=== PATIENT | male | born 1975 | race Hispanic/Latino ===

== ENCOUNTER 2018-01-17 19:31 | Emergency (ER) | payer OTHER ==
[2018-01-17 19:58] VITALS: TEMP 98.5
--- NOTE | 2018-01-17 20:04 | ED PDOC ---
Arrival/HPI - General Time Seen by Provider: 01/17/18 19:47 Historian: Patient - History of Present Illness Narrative History of Present Illness (Text): 01/17/18 19:51 42yo male with no PMhx who present with complaint of dog bite to right Daniel hand this evening. states he was bitten by his dog, when he tried to break up his dogs fight. He notes that the dog is vaccinated. The patient is not up to date with his TD booster. He denies any other complaint. Past Medical History - Provider Review Nursing Documentation Reviewed: Yes Family/Social History - Physician Review Nursing Documentation Reviewed: Yes Family/Social History: Unknown Family HX Allergies/Home Meds Allergies/Adverse Reactions: Allergies No Known Allergies Allergy (Verified 01/17/18 20:02) Home Medications: Home Meds Medication Instructions Recorded Confirmed buPROPion [Wellbutrin] 450 mg PO DAILY 01/17/18 01/17/18 Review of Systems - Physician Review All systems were reviewed & negative as marked: Yes - Review of Systems Constitutional: Normal Eyes: Normal ENT: Normal Respiratory: Normal Cardiovascular: Normal Gastrointestinal: Normal Genitourinary Male: Normal Musculoskeletal: Normal Skin: Other (Dog bite to right palm) Neurological: Normal Endocrine: Normal Hemo/Lymphatic: Normal Psychiatric: Normal Physical Exam Vital Signs Reviewed: Yes Vital Signs Temp Pulse Resp BP Pulse Ox 01/17/18 19:32 98.5 F 94 H 17 130/84 98 Temperature: Afebrile Blood Pressure: Normal Pulse: Regular Respiratory Rate: Normal Appearance: Positive for: Well-Appearing, Non-Toxic, Comfortable Pain Distress: None Mental Status: Positive for: Alert and Oriented X 3 - Systems Exam Head: Present: Atraumatic, Normocephalic Pupils: Present: PERRL Extroacular Muscles: Present: EOMI Conjunctiva: Present: Normal Mouth: Present: Moist Mucous Membranes Neck: Present: Normal Range of Motion Respiratory/Chest: Present: Clear to Auscultation, Good Air Exchange. No: Respiratory Distress, Accessory Muscle Use Cardiovascular: Present: Regular Rate and Rhythm, Normal S1, S2. No: Murmurs Abdomen: No: Tenderness, Distention, Peritoneal Signs Back: Present: Normal Inspection Upper Extremity: Present: Normal Inspection. No: Cyanosis, Edema Lower Extremity: Present: Normal Inspection. No: Edema Neurological: Present: GCS=15, CN II-XII Intact, Speech Normal Skin: Present: Warm, Dry, Normal Color, Laceration (2.0cm linear laceration to right thenar prominence of right palm). No: Rashes Psychiatric: Present: Alert, Oriented x 3, Normal Insight, Normal Concentration Medical Decision Making ED Course and Treatment: 01/17/18 20:21 Right hand laceration from a dog bite. Pressure irrigation of wound done. Bacitracine applied and dressed. Suture was not applied, hence is not indicated for dog bite. Wound expected to heal by secondary healing. Pt placed on prophylactic abx. Advised to follow up with his PMD or return to ED in 2days for wound check. - Medication Orders Current Medication Orders: Discontinued Medications Amoxicillin/Clavulanate Potassium (Augmentin 875 Mg-125 Mg Tab) 1 tab PO STAT STA PRN Reason: Protocol Stop: 01/17/18 20:06 Last Admin: 01/17/18 20:19 Dose: 1 tab Tetanus/Reduced Diphtheria/Acell Pertussis (Boostrix Vaccine Inj) 0.5 ml IM .ONCE ONE Stop: 01/17/18 20:06 Last Admin: 01/17/18 20:20 Dose: 0.5 ml Immunization Registry Document 01/17/18 20:20 AD (Rec: 01/17/18 20:20 [place] [facility] [id number] Immunization Registry Consent Date 01/17/18 Tramadol HCl (Ultram) 50 mg PO STAT STA Stop: 01/17/18 20:07 Last Admin: 01/17/18 20:19 Dose: 50 mg MAR Pain Assessment Document 01/17/18 20:19 AD (Rec: 01/17/18 20:19 AD [facility] [id number] Pain Reassessment Is this a pain reassessment? No Presence of Pain Presence of Pain Yes Pain Scale Used Pain Scale Used Numeric Location Left, Right or Bilateral Right Description Intensity of Pain at present 8 Disposition/Present on Arrival - Present on Arrival Any Indicators Present on Arrival: No History of DVT/PE: No History of Uncontrolled Diabetes: No Urinary Catheter: No History of Decub. Ulcer: No History Surgical Site Infection Following: None - Disposition Have Diagnosis and Disposition been Completed?: Yes Diagnosis: Dog bite Disposition: HOME/ ROUTINE Disposition Time: 20:25 Patient Plan: Discharge Patient Problems: Current Active Problems Problem Status Onset Dog bite Acute Condition: STABLE Discharge Instructions (ExitCare): Animal Bites (DC) Additional Instructions: Take medication as directed Keep wound clean and dry Follow up with your Doctor Return to ED in 2days for wound check Prescriptions: Amoxicillin/Clavulanate [Augmentin 875 MG-125 MG] 1 tab PO BID #20 tab traMADol [Ultram] 50 mg PO TID #9 tab Referrals: Darrell Wall, [Primary Care Provider] - [place] up with primary [facility] [place] - Follow up with primary
[2018-01-17] MEDS ORDERED: TDAP Vaccine 0.5 mL Syr IM ONE (20:05)
[2018-01-17] MEDS ORDERED: Amoxicillin-Clav 875-125 mg Tab PO STA (20:05)
[2018-01-17 20:35] VITALS: BP 128/82; PULSE 88; RESP 18; O2SAT 100
== END 2018-01-17 20:33 | disposition home or self-care (01) ==
LOC: ED 19:31
DX: S61.451A Open bite of right hand, initial encounter (principal); W54.0XXA Bitten by dog, initial encounter; Z23 Encounter for immunization

== ENCOUNTER 2018-01-20 16:35 | Emergency (ER) | payer OTHER ==
[2018-01-20] MEDS ORDERED: RABIES VACCINE 2.5 Units PDR IM ONE ×2 (16:52→17:00)
--- NOTE | 2018-01-20 17:04 | ED PDOC ---
Arrival/HPI - General Chief Complaint: Wound Check Time Seen by Provider: 01/20/18 16:51 Historian: Patient - History of Present Illness Narrative History of Present Illness (Text): 01/20/18 17:04 42yr old male presents today for wound check to right hand. pt states on 01/17 the patient's got bit by his own dog. Patient states his dog is up-to-date on immunizations. Patient states he was seen in the emergency room and was given Augmentin. Patient states he is taking the antibiotic as prescribed. He denies fevers or chills. He denies numbness weakness or tingling in the extremities. Patient states the pain in the hand has improved drastically. Patient denies limited range of motion of the hand or fingers. No other complaints Symptom Course: Improving Past Medical History - Provider Review Nursing Documentation Reviewed: Yes - Travel History Have you recently traveled outside [place] w/in the past 3 mons?: No - Infectious Disease Hx of Infectious Diseases: None - Tetanus Immunization Tetanus Immunization: Up to Date - Cardiac Hx Cardiac Disorders: No - Pulmonary Hx Respiratory Disorders: No - Neurological Hx Neurological Disorder: No - HEENT Hx HEENT Disorder: No - Renal Hx Renal Disorder: No - Endocrine/Metabolic Hx Endocrine Disorders: No - Hematological/Oncological Hx Blood Disorders: No - Integumentary Hx Dermatological Disorder: No - Musculoskeletal/Rheumatological Hx Musculoskeletal Disorders: No - Gastrointestinal Hx Gastrointestinal Disorders: No - Genitourinary/Gynecological Hx Genitourinary Disorders: No - Psychiatric Hx Psychophysiologic Disorder: Yes Hx Depression: Yes Hx Substance Use: No - Surgical History Hx Eye Surgery: Yes Hx Orthopedic Surgery: Yes (left shoulder) - Anesthesia Hx Anesthesia: Yes Hx Anesthesia Reactions: No Family/Social History - Physician Review Nursing Documentation Reviewed: Yes Family/Social History: Unknown Family HX Smoking Status: Never Smoked Hx Alcohol Use: Yes Frequency of alcohol use: Socially Hx Substance Use: No Allergies/Home Meds Allergies/Adverse Reactions: Allergies No Known Allergies Allergy (Verified 01/20/18 16:51) Home Medications: Home Meds Medication Instructions Recorded Confirmed buPROPion [Wellbutrin] 400 mg PO DAILY 01/17/18 01/17/18 Review of Systems - Review of Systems Constitutional: absent: Fatigue, Fevers Respiratory: absent: SOB, Cough Cardiovascular: absent: Chest Pain, Palpitations Gastrointestinal: absent: Abdominal Pain, Nausea, Vomiting Musculoskeletal: absent: Back Pain, Neck Pain Skin: Laceration Neurological: absent: Headache, Dizziness Psychiatric: absent: Anxiety, Depression Physical Exam Vital Signs Reviewed: Yes Vital Signs Temp Pulse Resp BP Pulse Ox 01/20/18 16:49 98.8 F 92 H 18 114/80 97 Temperature: Afebrile Blood Pressure: Normal Pulse: Regular Respiratory Rate: Normal Appearance: Positive for: Well-Appearing, Non-Toxic, Comfortable Pain Distress: None Mental Status: Positive for: Alert and Oriented X 3 - Systems Exam Head: Present: Atraumatic Respiratory/Chest: Present: Clear to Auscultation Cardiovascular: Present: Regular Rate and Rhythm Upper Extremity: Present: Normal ROM, NORMAL PULSES, Neurovascularly Intact, Capillary Refill < 2s, Other (right hand; there is a 3cm healing laceration to palm over thenar eminence. no surrounding erythema; no edema, no edema, no tenderness. full rom of hand. sensation and distal pulses intact cap refill <2. ). No: Tenderness, Swelling, Erythema, Deformity Neurological: Present: GCS=15, Speech Normal Skin: Present: Warm, Dry Psychiatric: Present: Alert, Oriented x 3 Medical Decision Making ED Course and Treatment: 01/20/18 17:16 Patient is nontoxic well-appearing in no distress. Vital signs are stable. presenting for wound check of dog bite of hand. Dog is: Up to date on immunizations Tetanus up to date wound healing well; no signs of infection; pt was placed into finger splint along thumb to limit rom at thenar eminence to improve wound healing. Patient was advised to keep the wound clean and dry, apply bacitracin twice daily, take antibiotics as prescribed and return immediately if symptoms worsen persist or if new symptoms develop Patient verbalizes understanding of discharge instructions and need for immediate followup. all aspects of this case were discussed the attending of record. Impression: Dog bite, laceration,hand, wound check Motrin every 6 hours as needed for pain continue Augmentin as prescribed. Keep the wound clean and dry, apply bacitracin twice daily Return immediately if signs of infection develop: High fevers, increasing pain, redness, swelling, purulent discharge Follow up with the hand specialist within the next 2 days. Followup with primary care physician within the next 2 days Return if any other concerning symptoms develop Disposition/Present on Arrival - Present on Arrival Any Indicators Present on Arrival: No History of DVT/PE: No History of Uncontrolled Diabetes: No Urinary Catheter: No History of Decub. Ulcer: No History Surgical Site Infection Following: None - Disposition Have Diagnosis and Disposition been Completed?: Yes Diagnosis: Visit for wound check, Dog bite, Laceration of hand Disposition: HOME/ ROUTINE Disposition Time: 17:01 Patient Plan: Discharge Patient Problems: Current Active Problems Problem Status Onset Dog bite Acute Laceration of hand Acute Visit for wound check Acute Condition: GOOD Discharge Instructions (ExitCare): Animal Bites (DC), Wound Care (DC) Additional Instructions: Motrin every 6 hours as needed for pain continue Augmentin as prescribed. Keep the wound clean and dry, apply bacitracin twice daily Return immediately if signs of infection develop: High fevers, increasing pain, redness, swelling, purulent discharge Follow up with the hand specialist within the next 2 days. Followup with primary care physician within the next 2 days Return if any other concerning symptoms develop Referrals: Gregory Feng MD [Staff Provider] - Follow up with primary Delano Julio MD [Staff Provider] - Follow up with primary Forms: [employer] ([place]), WORK NOTE
[2018-01-20 17:09] VITALS: BP 114/80; PULSE 92; RESP 18; TEMP 98.8
[2018-01-20 17:12] VITALS: O2SAT 99
== END 2018-01-20 17:45 | disposition home or self-care (01) ==
LOC: ED 16:35
DX: Z51.89 Encounter for other specified aftercare (principal); S61.411D Laceration without foreign body of right hand, subsequent encounter; W54.0XXD Bitten by dog, subsequent encounter